=== PATIENT | male | born 1955 | race Caucasian/White ===

== ENCOUNTER 2019-12-27 13:25 | Emergency (ER) | payer BC, SELFPAY ==
--- NOTE | 2019-12-27 13:29 | ED.WOUNDLAC ---
HPI - Wound/Laceration General Chief Complaint: Wound/Laceration Stated Complaint: Splinter in right hand Time Seen by Provider: 12/27/19 13:36 Source: patient and RN notes reviewed Mode of arrival: ambulatory Limitations: no limitations History of Present Illness HPI narrative: 64-year-old male presents with concern for splinter in his right hand on the palmar aspect near the thumb. Reports he was installing a mailbox yesterday when he got a wooden splinter. Reports he went to [facility] and got a tetanus shot. Reports redness surrounding the splinter. Denies any decreased range of motion, sensation, strength in his digits or hand. Related Data Allergies Allergy/AdvReac Type Severity Reaction Status Date / Time No Known Allergies Allergy Verified 12/27/19 13:56 Review of Systems Review of Systems: Narrative: CONSTITUTIONAL: Denies malaise, chills, sweats, or fever. CARDIOVASCULAR: Denies chest pain, palpitations, or edema. SKIN: Reports splinter the palmar aspect of the right hand near the thumb MUSCULOSKELETAL: Denies decreased strength, range of motion in the digits of the right hand NEUROLOGIC: Denies numbness, weakness. All systems reviewed & are unremarkable except as noted in HPI and below PMFSH Comments At time of signature, agree with nursing past medical, surgical, social and family history. There is no relevant family history pertinent to the presenting complaint Exam Narrative: Exam Narrative: GENERAL: Well-appearing, well-nourished, and in no acute distress. HEAD: Normocephalic, atraumatic. EYES: PERRLA, conjunctivae clear NECK: Supple. CHEST: Speaks in full sentences. No respiratory distress. HEART: Regular rate and rhythm. Normal and equal peripheral pulses. EXTREMITIES: Right hand and digits of hand have normal strength and sensation. 5/5 strength with digit flexion, extension. Range of motion normal. No clubbing, cyanosis, or edema noted. No tenderness. Skin intact. Normal digital cascade with flexion of fingers, median, ulnar and radial nerve intact. Normal sensation of each side of finger. Can perform 'okay' sign, 'cross over finger test of index and middle fingers' and 'thumbs up' sign. No scissoring. Normal thumb opposition. Good capillary refill and radial pulse. Distal capillary refill <3 seconds. Skin: 1 cm x 0.5cm area of erythema with foreign body visible noted to the palmar aspect of the right hand beneath the first digit NEURO: Alert and oriented x3. PSYCH: Normal mood and affect Course Course Emergency Course: Patient is aware of diagnosis, understands and agrees to treatment plan. Anticipatory guidance given. Patient agrees to follow-up as directed and is aware of reasons to seek care at the emergency department. Portions of this record may have been created with voice recognition software Vital Signs Vital signs: Vital Signs Temperature 98.1 F 12/27/19 13:47 Pulse Rate 63 12/27/19 13:47 Respiratory Rate 16 12/27/19 13:47 Blood Pressure 123/90 12/27/19 13:47 Pulse Oximetry 97 12/27/19 13:47 Temperature 98.1 F 12/27/19 13:47 Pulse Rate 63 12/27/19 13:47 Respiratory Rate 16 12/27/19 13:47 Blood Pressure 123/90 12/27/19 13:47 Pulse Oximetry 97 12/27/19 13:47 Reviewed. Procedures Foreign Body Removal Foreign Body #1: Foreign Body Removal Date: 12/27/19 Foreign Body Removal Time: 13:40 Time Out Performed: yes Site: right and hand Description of foreign body: other (Wood splinter) Sedation/Analgesia: other (1% lidocaine) Technique: removal with forceps and incision made to facilitate removal (0.2 cm superficial incision made to facilitate removal) Confirmed by:: direct visualization Complications: none Post-procedure exam: awake, alert Neurovascular: normal distal pulse, normal capillary fill, distal light touch sensation intact, distal motor function normal, no signs of compartment syndrome an
[2019-12-27 13:47] VITALS: BP 123/90; PULSE 63; RESP 16; TEMP 36.7; O2SAT 97
== END 2019-12-27 14:03 | disposition home or self-care (01) ==
PROVIDERS: Emergency Provider Nurse Practitioner
DX: S60.551A Superficial foreign body of right hand, initial encounter (principal); W45.8XXA Other foreign body or object entering through skin, initial encounter
CPT/HCPCS: 10120; 99213; G0463

== ENCOUNTER 2021-06-06 11:50 | Emergency (ER) | payer BC, SELFPAY ==
[2021-06-06 12:08] VITALS: BP 121/87; PULSE 65; RESP 20; TEMP 36.6; O2SAT 95
--- NOTE | 2021-06-06 12:47 | ED.WOUNDLAC ---
HPI - Wound/Laceration General Chief Complaint: Extremity Injury, Upper Stated Complaint: left hand finger lac Time Seen by Provider: 06/06/21 12:38 Source: patient, family and RN notes reviewed Mode of arrival: ambulatory Limitations: no limitations History of Present Illness HPI narrative: Josep is a 66-year-old male patient who ambulated into the [facility] reviewed by his . Left index finger with approx 2.5 cm laceration, bleeding controlled. Patient states he cut finger with a box knife cutting a rug. Patient states he has full range of motion. Patient states he can feel and move distally. Patient is unsure of tetanus shot status Related Data Home Medications Medication Instructions Recorded Confirmed ezetimibe mg 06/06/21 finasteride mg 06/06/21 metoprolol succinate PO 06/06/21 rivaroxaban [Xarelto] mg 06/06/21 simvastatin mg 06/06/21 tamsulosin mg PO 06/06/21 vardenafil mg 06/06/21 Allergies Allergy/AdvReac Type Severity Reaction Status Date / Time No Known Allergies Allergy Verified 12/27/19 13:56 Review of Systems Review of Systems: CONSTITUTIONAL: Denies body aches, fever, chills, or sweats. EYES: Denies visual changes, redness, or discharge. ENT: Denies rhinorrhea, congestion, sore throat, or otalgia. CARDIOVASCULAR: Denies chest pain, palpitations, or edema. RESPIRATORY: Denies cough or dyspnea. GASTROINTESTINAL: Denies abdominal pain, nausea, vomiting, or diarrhea. GENITOURINARY: Denies dysuria or hematuria. SKIN: Denies rash, itching, left index finger laceration. MUSCULOSKELETAL: Denies back pain, joint pain, or myalgia. NEUROLOGIC: Denies headache, numbness, tingling, or weakness. PSYCH: Denies depression or anxiety. All systems reviewed & are unremarkable except as noted in HPI and below PMFSH Comments At time of signature, I have reviewed and agree with nursing past medical, surgical, social and family history unless otherwise noted. Please see nursing chart for further information. There is no relevant family history pertinent to the presenting complaint Exam Narrative: GENERAL: Well-appearing, well-nourished, and in no acute distress. HEAD: Normocephalic, atraumatic. EYES: EOMI. No redness or drainage. Conjunctivae normal. ENT: Mucous membranes pink and moist. Nares clear. No rhinorrhea. TMs normal bilaterally. Throat normal. Uvula midline. NECK: Normal AROM. Supple. No lymphadenopathy. MUSCULOSKELETAL: No bony tenderness. EXTREMITIES: Normal range of motion. No edema. SKIN: Warm, dry, no rash. Capillary refill normal. Normal skin turgor. 2.5 cm superficial laceration left index finger on lateral by DIP joint. NEURO: No focal deficits. Alert and oriented x3. Gait steady. PSYCH: Normal affect. No signs of depression or anxiety. Course Vital Signs Vital signs: Vital Signs Temperature 36.6 C 06/06/21 12:08 Pulse Rate 65 06/06/21 12:08 Respiratory Rate 20 06/06/21 12:08 Blood Pressure 121/87 06/06/21 12:08 Pulse Oximetry 95 06/06/21 12:08 Temperature 36.6 C 06/06/21 12:08 Pulse Rate 65 06/06/21 12:08 Respiratory Rate 20 06/06/21 12:08 Blood Pressure 121/87 06/06/21 12:08 Pulse Oximetry 95 06/06/21 12:08 Reviewed MDM - Wound/Laceration MDM Narrative Medical decision making narrative: Patient is a 2.5 cm laceration that is superficial to the left index finger on the lateral side. 4 Steri-Strips were applied to the superficial wound. The wound will be dressed with gauze and a finger splint. Patient was instructed to wash his hands twice daily with a mild soap and water. Wear the bandage for the next 2 days. After 2 days he may cover with a Band-Aid or leave open to air. Patient was instructed to wear the splint when working with his hands for the next 5 days. Follow-up with your primary care physician for any signs of infection such as redness, drainage, or increased pain Differential Diagnosis Differential diagno
== END 2021-06-06 13:10 | disposition home or self-care (01) ==
PROVIDERS: Emergency Provider Nurse Practitioner Family; PCP Internal Medicine
DX: S61.211A Laceration without foreign body of left index finger without damage to nail, initial encounter (principal); W26.0XXA Contact with knife, initial encounter
CPT/HCPCS: 99213; G0463